=== PATIENT | male | born 1990 | race Caucasian/White ===

== ENCOUNTER 2019-02-17 19:05 | Inpatient (IN) | payer MEDICAID ==
[~2019-02-17] VITALS: Ht 175.3 cm; Wt 69.7 kg
[2019-02-17 20:06] VITALS: Ht 175.3 cm; Wt 69.7 kg
[2019-02-17] MEDS ORDERED: HALOPERIDOL 5 MG INJ IM STA (20:06)
[2019-02-17] MEDS ORDERED: LORAZEPAM 2 MG INJ IM STA (20:06)
--- NOTE | 2019-02-17 22:00 | ERD ---
ER Documentation Chief Complaint Chief Complaint hallucination, currently high on meth HPI 28-year-old male presents the emergency department hallucinating. Patient states that he uses heroin and methamphetamine which he used today. Provides no further insight into his presentation. ROS All systems reviewed and are negative except as per history of present illness. PMhx/Soc Medical and Surgical Hx: pt denies Surgical Hx History of Surgery: No Anesthesia Reaction: No Hx Neurological Disorder: Yes (epilepsy) Hx Respiratory Disorders: Yes (asthma) Hx Cardiac Disorders: No Hx Psychiatric Problems: No Hx Miscellaneous Medical Probl: Yes (gastritis ) Hx Alcohol Use: No Hx Substance Use: Yes (heroin, meth) Hx Tobacco Use: No Smoking Status: Current every day smoker FmHx Unknown at this time Physical Exam Vitals Vital Signs Date Temp Pulse Resp B/P (MAP) Pulse Ox O2 O2 Flow FiO2 Time Delivery Rate 02/17/19 98.3 115 12 121/62 98 20:06 (81) Physical Exam GENERAL: The patient is well developed and appropriate for usual state of health in no apparent distress HEENT: Pupils equal, round, and reactive to light. EOMI. There is no scleral icterus. NECK: C-spine is soft and supple, there is no meningismus. There is no cervical lymphadenopathy. LUNGS: Clear to auscultation bilaterally. There are no rales, wheezes or rhonchi. HEART: Regular rate and rhythm, no murmurs, clicks, rubs or gallops. ABDOMEN: Soft, non-tender, non-distended. There are bowel sounds in all four quadrants. No rebound or guarding. EXTREMITIES: There is no peripheral cyanosis or edema. No focal swelling or erythema. NEURO: The patient moves all four extremities with 5/5 strength. Cranial nerves II - XII are intact. Normal gait. Alert and oriented SKIN: There is stigmata of substance abuse HEME/LYMPHATIC: There is no evidence of excessive bruising or lymphedema. PSYCHIATRIC: Patient is awake but psychotic with no significant insight. He is slightly agitated but not violent. He has no insight or judgment. Result Diagram: 02/17/192127 Results 24 hrs Laboratory Tests Test 02/17/19 21:28 White Blood Count 8.1 10^3/ul Red Blood Count 4.41 10^6/ul Hemoglobin 13.2 g/dl Hematocrit 41.6 % Mean Corpuscular Volume 94.3 fl Mean Corpuscular Hemoglobin 29.9 pg Mean Corpuscular Hemoglobin Concent 31.7 g/dl Red Cell Distribution Width 16.2 % Platelet Count 221 10^3/UL Mean Platelet Volume 10.2 fl Immature Granulocytes % 0.200 % Neutrophils % 58.2 % Lymphocytes % 26.9 % Monocytes % 13.6 % Eosinophils % 0.9 % Basophils % 0.2 % Nucleated Red Blood Cells % 0.0 /100WBC Immature Granulocytes # 0.020 10^3/ul Neutrophils # 4.7 10^3/ul Lymphocytes # 2.2 10^3/ul Monocytes # 1.1 10^3/ul Eosinophils # 0.1 10^3/ul Basophils # 0.0 10^3/ul Nucleated Red Blood Cells # 0.0 10^3/ul Current Medications Medications Dose Sig/Gurvinder Start Time Status Last (Trade) Ordered Route PRN Stop Time Admin Dose Reason Admin Lorazepam 1 mg ONCE STAT 02/17/19 DC (Ativan) IM 20:06 02/17/19 20:08 Haloperidol 5 mg ONCE STAT 02/17/19 DC (Haldol) IM 20:06 02/17/19 20:08 Procedures/MDM Patient was taken to a room, seen and evaluated. Comfort measures were init iated. Diagnostic tests were ordered and reviewed. 3 LEAD RHYTHM STRIP: Normal sinus rhythm without ectopy RADIOLOGY: Reviewed with the radiologist REEVALUATION: 1999: Patient required sedation and responded nicely. He is now sedated. MEDICAL DECISION MAKIN-year-old male presents the emergency department with psychotic features related to the use of drugs of abuse. At this time patient will require observation until complete reevaluation can be performed when sober. Patient will require a psychiatric social and medical reevaluation at that time. Departure Diagnosis: Primary Impression: Psychosis Additional Impression: Drug abuse Condition: CINDY Olivares Feb 17, 2019 22:00
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
[2019-02-18] MEDS ORDERED: HYDROCODONE/APAP (10/325) TAB PO ONE (10:00)
[2019-02-18] MEDS ORDERED: LORAZEPAM 1 MG TAB PO ONE (17:00)
[2019-02-19] MEDS ORDERED: ONDANSETRON 4 MG INJ IV PRN ×3 (00:30→01:00)
[2019-02-19] MEDS ORDERED: DOCUSATE SODIUM 100 MG CAP PO PRN (00:30)
[2019-02-19] MEDS ORDERED: NACL 0.9% 3 ML SYG IV SCH (00:30)
[2019-02-19] MEDS ORDERED: ACETAMINOPHEN 325 MG TAB PO PRN ×2 (00:30)
[2019-02-19] MEDS ORDERED: BISACODYL (EC) 5 MG TAB PO PRN (00:30)
[2019-02-19] MEDS ORDERED: DIPHENHYDRAMINE 50 MG INJ IM PRN (01:00)
[2019-02-19] MEDS: LORAZEPAM 2 MG INJ IV PRN ×4 (03:41→23:57)
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
[2019-02-19] MEDS ORDERED: OLANZAPINE 5 MG TAB PO SCH (09:00)
--- NOTE | 2019-02-19 17:54 | PSY ---
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 At the time was very disorganized, paranoid, had AH. Came to hospital with severe paranoia, also elevated LFTs (that is why pt is on medical ponce). Had been using methamphetamine/heroin. Began zyprexa 5mg po bid. spoke with pt as MD was asked to see pt for re eval. Pt was organized, denies paranoia or AH. Denies si. Admits to using methamphetamine and heroin. Does not want to be in psych hospital though this was offered and recommended. Past Psych Hx: denies ho psych admits or suicide attempts PMHx; hep C, seizure do Meds: zyprexa 5mg po bid nkda MSE: casually groomed, cooperative, organized, slightly restricted affect, denies delusions or avh or si/hi, impaired insight/impulse control Imp: 28 yo male when he presented he was gravely disabled but at this point does not appear to be gravely disabled as he has responded to treatment. And pt declines voluntary admission. Therefore, the lowest level of care for pt would be outpatient continue zyprexa 5mg po bid recommend parallel hx from family/friend to confirm that he was not/is not indicating si; if this is the case, can d/c 1:1 and pt can be referred to outpatient psychiatry if pt's liver is tolerating zyprexa (recommend repeat of LFTs to ensure he is able to tolerate zyprexa ) Hospitalization: yes Medical history Problems Medical Problems: (1) Drug abuse Status: Acute (2) Psychosis Status: Acute Allergies: Coded Allergies: Unknown: Unable to obtain (Unverified , 02/17/19) Social History Marital status: other Psychiatric Objective Eval Mental Status Examination: Laboratory Results Laboratory Tests Test 02/17/19 21:28 02/18/19 09:36 02/18/19 20:40 02/19/19 04:40 White Blood 8.1 10^3/ul 4.8 10^3/ul Count Red Blood Count 4.41 10^6/ul 3.93 10^6/ul Hemoglobin 13.2 g/dl 11.8 g/dl Hematocrit 41.6 % 37.4 % Mean Corpuscular 94.3 fl 95.2 fl Volume Mean Corpuscular 29.9 pg 30.0 pg Hemoglobin Mean Corpuscular 31.7 g/dl 31.6 g/dl Hemoglobin [place] nt Red Cell 16.2 % 16.1 % Distribution Width Platelet Count 221 10^3/UL 226 10^3/UL Mean Platelet 10.2 fl 10.3 fl Volume Immature 0.200 % 0.400 % Granulocytes % Neutrophils % 58.2 % 42.9 % Lymphocytes % 26.9 % 34.6 % Monocytes % 13.6 % 18.4 % Eosinophils % 0.9 % 3.3 % Basophils % 0.2 % 0.4 % Nucleated Red 0.0 /100WBC 0.0 /100WBC Blood Cells % Immature 0.020 10^3/ul 0.020 10^3/ul Granulocytes # Neutrophils # 4.7 10^3/ul 2.1 10^3/ul Lymphocytes # 2.2 10^3/ul 1.7 10^3/ul Monocytes # 1.1 10^3/ul 0.9 10^3/ul Eosinophils # 0.1 10^3/ul 0.2 10^3/ul Basophils # 0.0 10^3/ul 0.0 10^3/ul Nucleated Red 0.0 10^3/ul 0.0 10^3/ul Blood Cells # Sodium Level 140 mmol/L 143 mmol/L Potassium Level 3.6 mmol/L 4.4 mmol/L Chloride Level 104 mmol/L 107 mmol/L Carbon Dioxide 22 mmol/L 25 mmol/L Level Anion Gap 14 11 Blood Urea 11 mg/dl 13 mg/dl Nitrogen Creatinine 0.66 mg/dl 0.67 mg/dl Est Glomerular > 60 mL/min > 60 mL/min Filtrat Rate mL/min Glucose Level 69 mg/dl 126 mg/dl Calcium Level 9.3 mg/dl 8.7 mg/dl Total Bilirubin 0.9 mg/dl 0.8 mg/dl 0.5 mg/dl Direct Bilirubin 0.00 mg/dl 0.00 mg/dl 0.00 mg/dl Indirect 0.9 mg/dl 0.8 mg/dl 0.5 mg/dl Bilirubin Aspartate Amino 581 IU/L 524 IU/L 500 IU/L Transf (AST/SGOT ) Alanine 1070 IU/L 855 IU/L 857 IU/L Aminotransferase (ALT/SGPT) Alkaline 142 IU/L 101 IU/L 100 IU/L Phosphatase Total Protein 8.7 g/dl 7.7 g/dl 7.6 g/dl Albumin 3.8 g/dl 3.2 g/dl 3.2 g/dl Globulin 4.90 g/dl 4.40 g/dl Albumin/Globulin 0.77 0.72 Ratio Salicylates < 1.0 mg/dl Level Acetaminophen < 10.0 ug/ml Level Ethyl Alcohol < 10.0 mg/dl Level Urine Color VIPUL Urine Clarity CLEAR Urine pH 5.0 Urine Specific 1.025 [place] Urine Ketones 1+ mg/dL Urine Nitrite NEGATIVE mg/dL Urine Bilirubin NEGATIVE mg/dL Urine 2+ mg/dL Urobilinogen Urine Leukocyte NEGATIVE Elena/ul Esterase Urine 14 /HPF Microscopic RBC Urine 2 /HPF Microscopic WBC Urine Bacteria FEW /HPF Urine Mucus FEW /HPF Urine Hemoglobin 2+ mg/dL Urine Glucose NEGATIVE mg/dL Urine Total 1+ mg/dl Protein Urine Opiates Negative Screen Urine Negative Barbiturates Urine POSITIVE Amphetamines Screen Urine Positive Benzodiazepines Screen Urine Cocaine Negative Screen Urine Negative Cannabinoids Test 02/19/19 04:44 Lipase 65 U/L Hepatitis B NEGATIVE Surface Antigen Hepatitis B NEGATIVE Surface Antibody Hepatitis B Core NEGATIVE Total Antibody Hepatitis C REACTIVE Antibody Assessment and Plan Recommendation/Plan Multiple antipsychotics: No Discharge Disposition: Community Legal Status: Release involuntary hold MER MALDONADO Feb 19, 2019 17:54
--- NOTE | 2019-02-19 20:01 | PN ---
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 Psychiatric mangement per psychiatry Transamintis: - Known HCV disease but this elevation is higher than expected - RUQ US ok - Trend LFTs for now Methamphetine use d/o: - Cessation encouraged SW/CM consults Result Diagram: 02/19/19 0440 02/19/190 Results 24hrs Laboratory Tests Test 02/18/19 20:40 02/19/19 04:40 02/19/19 04:44 Total Bilirubin 0.8 0.5 Direct Bilirubin 0.00 0.00 Indirect Bilirubin 0.8 0.5 Aspartate Amino Transf (AST/SGOT) 524 H 500 H Alanine Aminotransferase (ALT/SGPT) 855 H 857 H Alkaline Phosphatase 101 100 Total Protein 7.7 # 7.6 Albumin 3.2 L 3.2 L White Blood Count 4.8 # Red Blood Count 3.93 L Hemoglobin 11.8 L Hematocrit 37.4 L Mean Corpuscular Volume 95.2 Mean Corpuscular Hemoglobin 30.0 Mean Corpuscular Hemoglobin Concent 31.6 L Red Cell Distribution Width 16.1 H Platelet Count 226 Mean Platelet Volume 10.3 Immature Granulocytes % 0.400 Neutrophils % 42.9 Lymphocytes % 34.6 Monocytes % 18.4 H Eosinophils % 3.3 Basophils % 0.4 Nucleated Red Blood Cells % 0.0 Immature Granulocytes # 0.020 Neutrophils # 2.1 Lymphocytes # 1.7 Monocytes # 0.9 Eosinophils # 0.2 Basophils # 0.0 Nucleated Red Blood Cells # 0.0 Sodium Level 143 Potassium Level 4.4 Chloride Level 107 Carbon Dioxide Level 25 Anion Gap 11 Blood Urea Nitrogen 13 Creatinine 0.67 Est Glomerular Filtrat Rate mL/min > 60 Glucose Level 126 # Calcium Level 8.7 Globulin 4.40 H Albumin/Globulin Ratio 0.72 Lipase 65 Hepatitis B Surface Antigen NEGATIVE Hepatitis B Surface Antibody NEGATIVE Hepatitis B Core Total Antibody NEGATIVE Hepatitis C Antibody REACTIVE H Subjective 24 Hr Interval Summary Free Text/Dictation Patient encephelopahty has resolved Feels well, only complaint is of pain on L hip He denies suicidal ideation Exam/Review of Systems Exam Vitals Vital Signs Date Temp Pulse Resp B/P (MAP) Pulse Ox O2 O2 Flow FiO2 Time Delivery Rate 02/19/19 77 18 109/69 97 Room Air 15:38 (82) 02/18/19 98.0 19:22 Constitutional: alert, oriented, well developed Psych: no complaints, nl mood/affect Head: normocephalic, atraumatic Eyes: nl conjunctiva, EOMI, nl lids, nl sclera, PERRL ENMT: nl external ears & nose, nl lips & teeth, nl nasal mucosa & septum Neck: supple, non-tender Respiratory: clear to auscultation, normal air movement Cardiovascular: regular rate and rhythm, nl pulses Gastrointestinal: soft, nl liver, spleen, non-tender Musculoskeletal: nl extremities to inspection, nl gait and stance Extremities: normal pulses Neurological: [employer] 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[employer]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 intact, nl mental status, nl speech, nl strength Skin: nl turgor; No rash or lesions Lymph: nl lymph nodes Results Results 24hrs Laboratory Tests Test 02/18/19 20:40 02/19/19 04:40 02/19/19 04:44 Total Bilirubin 0.8 0.5 Direct Bilirubin 0.00 0.00 Indirect Bilirubin 0.8 0.5 Aspartate Amino Transf (AST/SGOT) 524 H 500 H Alanine Aminotransferase (ALT/SGPT) 855 H 857 H Alkaline Phosphatase 101 100 Total Protein 7.7 # 7.6 Albumin 3.2 L 3.2 L White Blood Count 4.8 # Red Blood Count 3.93 L Hemoglobin 11.8 L Hematocrit 37.4 L Mean Corpuscular Volume 95.2 Mean Corpuscular Hemoglobin 30.0 Mean Corpuscular Hemoglobin Concent 31.6 L Red Cell Distribution Width 16.1 H Platelet Count 226 Mean Platelet Volume 10.3 Immature Granulocytes % 0.400 Neutrophils % 42.9 Lymphocytes % 34.6 Monocytes % 18.4 H Eosinophils % 3.3 Basophils % 0.4 Nucleated Red Blood Cells % 0.0 Immature Granulocytes # 0.020 Neutrophils # 2.1 Lymphocytes # 1.7 Monocytes # 0.9 Eosinophils # 0.2 Basophils # 0.0 Nucleated Red Blood Cells # 0.0 Sodium Level 143 Potassium Level 4.4 Chloride Level 107 Carbon Dioxide Level 25 Anion Gap 11 Blood Urea Nitrogen 13 Creatinine 0.67 Est Glomerular Filtrat Rate mL/min > 60 Glucose Level 126 # Calcium Level 8.7 Globulin 4.40 H Albumin/Globulin Ratio 0.72 Lipase 65 Hepatitis B Surface Antigen NEGATIVE Hepatitis B Surface Antibody NEGATIVE Hepatitis B Core Total Antibody NEGATIVE Hepatitis C Antibody REACTIVE H Medications Medication Current Medications IV Flush (NS 3 ml) 3 ml PER PROTOCOL IV ; Start 02/19/19 at 00:30 Ondansetron HCl (Zofran Inj) 4 mg Q6H PRN IV NAUSEA/VOMITING; Start 02/19/19 at 00:30 Acetaminophen (Tylenol Tab) 650 mg Q6H PRN PO .PAIN 1-3 OR TEMP; Start 02/19/19 at 00:30 Docusate Sodium (Colace) 100 mg Q12H PRN PO .CONSTIPATION; Start 02/19/19 at 00:30 Bisacodyl (Dulcolax) 5 mg DAILY PRN PO .CONSTIPATION; Start 02/19/19 at 00:30 Lorazepam (Ativan) 1 mg Q4H PRN IV AGITATION Last administered on 02/19/19at 19: 22; Admin Dose 1 MG; Start 02/19/19 at 00:30 Olanzapine (Zyprexa) 5 mg BID PO Last administered on 02/19/19at 08:49; Admin Dose 5 MG; Start 02/19/19 at 09:00 Ondansetron HCl (Zofran Inj) 4 mg Q4H PRN IV NAUSEA AND/OR VOMITING; Start 02/19/19 at 01:00 Haloperidol (Haldol) 5 mg Q4H PRN IM severe agitation; Start 02/19/19 at 01:00 Diphenhydramine HCl (Benadryl) 50 mg Q6H PRN IM SEVERE AGITATION; Start 02/19/19 at 01:00 Lorazepam (Ativan) 2 mg Q6H PRN IM severe agitation; Start 02/19/19 at 01:00 Influenza Virus Vaccine Quadrival (Fluzone) 0.5 ml ONCE ONCE IM* ; Start 02/20/19 at 09:00; Stop 02/20/19 at 09:01 REINALDO CORDERO MD Feb 19, 2019 20:01
[2019-02-19 20:04] VITALS: BP 110/70; PULSE 72; RESP 18
[2019-02-20 08:00] VITALS: BP 100/61; PULSE 83; RESP 18
[2019-02-20] MEDS: LORAZEPAM 2 MG INJ IV PRN ×3 (08:24→21:14)
[2019-02-20] MEDS ORDERED: INFLUENZA VIRUS VACCINE 0.5 ML (DISPENSING) IM* ONE (09:00)
--- NOTE | 2019-02-20 10:52 | CONS ---
Date/Time of Note Date/Time of Note DATE: 02/20/19 TIME: 10:50 Consult Date/Type/Reason Admit Date Feb 19, 2019 at 00:10 Type of Consult Psych Subjective Patient was interviewed today, he denies suicidal ideation denies homicidal ideation, denies auditory hallucination, states his hallucination was drug- induced from meth, and since he has been off meth for a few days he does not have hallucination, and he contracted for safety. However continues to endorse increased anxiety and difficulty focusing. Objective Patient Appearance: Disheveled Voice Loudness: Moderately Soft/Quiet Mood and Affect Description: Anxious Mood or Affect: Cooperative, Anxious Speech Pattern: Clear Thought Process: Intact Hallucination Type: None Delusion Description: Not Present Assessment/Plan Recommendations Continue Ativan as ordered JALYN HARDING NP Feb 20, 2019 10:52
--- NOTE | 2019-02-20 11:33 | PN ---
Date/Time of Note Date/Time of Note DATE: 02/20/19 TIME: 11:31 Assessment/Plan VTE Prophylaxis SCD applied (from Nsg): Yes Pharmacological prophylaxis: heparin Lines/Catheters IV Catheter Type (from Nrsg): Saline Lock Assessment/Plan Hospital Course 28 yo male with HCV presents wtih methamphetamine induced psychosis and transami nitis Psychiatric mangement per psychiatry TMJ inflammation: - Toradol PRN Transamintis: - Known HCV disease but this elevation is higher than expected - RUQ US ok - Trend LFTs - Autoimmune labs pending, MRCP pending Methamphetine use d/o: - Cessation encouraged SW/CM consults Result Diagram: 02/20/19 0815 02/20/19 0815 Results 24hrs Laboratory Tests Test 02/20/19 08:15 White Blood Count 5.1 Red Blood Count 4.27 L Hemoglobin 12.6 L Hematocrit 40.4 L Mean Corpuscular Volume 94.6 Mean Corpuscular Hemoglobin 29.5 Mean Corpuscular Hemoglobin Concent 31.2 L Red Cell Distribution Width 15.5 H Platelet Count 264 Mean Platelet Volume 10.1 Immature Granulocytes % 0.200 Neutrophils % 44.9 Lymphocytes % 41.6 Monocytes % 10.0 Eosinophils % 2.7 Basophils % 0.6 Nucleated Red Blood Cells % 0.0 Immature Granulocytes # 0.010 Neutrophils # 2.3 Lymphocytes # 2.1 Monocytes # 0.5 Eosinophils # 0.1 Basophils # 0.0 Nucleated Red Blood Cells # 0.0 Sodium Level 142 Potassium Level 4.3 Chloride Level 106 Carbon Dioxide Level 27 Anion Gap 9 Blood Urea Nitrogen 14 Creatinine 0.63 Est Glomerular Filtrat Rate mL/min > 60 Glucose Level 97 Calcium Level 8.9 Total Bilirubin 0.5 Direct Bilirubin 0.00 Indirect Bilirubin 0.5 Aspartate Amino Transf (AST/SGOT) 423 H Alanine Aminotransferase (ALT/SGPT) 821 H Alkaline Phosphatase 93 Creatine Kinase 105 Total Protein 8.0 Albumin 3.4 Globulin 4.60 H Albumin/Globulin Ratio 0.73 Subjective 24 Hr Interval Summary Free Text/Dictation Complains of pain in L TMJ joint Anxious about living situation Denies and depression or SI Exam/Review of Systems Exam Vitals Vital Signs Date Temp Pulse Resp B/P (MAP) Pulse Ox O2 O2 Flow FiO2 Time Delivery Rate 02/20/19 98.0 83 18 100/61 97 Room Air 08:00 (74) Intake and Output 3/22/19 3/22/19 3/23/19 1515:00 23:00 07:00 IntakeIntake Total 240 ml 840 ml BalanceBalance 240 ml 840 ml Constitutional: alert, oriented, well developed Psych: no complaints, nl mood/affect Head: normocephalic, atraumatic Eyes: nl conjunctiva, EOMI, nl lids, nl sclera, PERRL ENMT: nl external ears & nose, nl lips & teeth, nl nasal mucosa & septum Neck: supple, non-tender Respiratory: clear to auscultation, normal air movement Cardiovascular: regular rate and rhythm, nl pulses Gastrointestinal: soft, nl liver, spleen, non-tender Musculoskeletal: nl extremities to inspection, nl gait and stance Extremities: normal pulses Neurological: 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, nl mental status, nl speech, nl strength Skin: nl turgor; No rash or lesions Lymph: nl lymph nodes Results Results 24hrs Laboratory Tests Test 02/20/19 08:15 White Blood Count 5.1 Red Blood Count 4.27 L Hemoglobin 12.6 L Hematocrit 40.4 L Mean Corpuscular Volume 94.6 Mean Corpuscular Hemoglobin 29.5 Mean Corpuscular Hemoglobin Concent 31.2 L Red Cell Distribution Width 15.5 H Platelet Count 264 Mean Platelet Volume 10.1 Immature Granulocytes % 0.200 Neutrophils % 44.9 Lymphocytes % 41.6 Monocytes % 10.0 Eosinophils % 2.7 Basophils % 0.6 Nucleated Red Blood Cells % 0.0 Immature Granulocytes # 0.010 Neutrophils # 2.3 Lymphocytes # 2.1 Monocytes # 0.5 Eosinophils # 0.1 Basophils # 0.0 Nucleated Red Blood Cells # 0.0 Sodium Level 142 Potassium Level 4.3 Chloride Level 106 Carbon Dioxide Level 27 Anion Gap 9 Blood Urea Nitrogen 14 Creatinine 0.63 Est Glomerular Filtrat Rate mL/min > 60 Glucose Level 97 Calcium Level 8.9 Total Bilirubin 0.5 Direct Bilirubin 0.00 Indirect Bilirubin 0.5 Aspartate Amino Transf (AST/SGOT) 423 H Alanine Aminotransferase (ALT/SGPT) 821 H Alkaline Phosphatase 93 Creatine Kinase 105 Total Protein 8.0 Albumin 3.4 Globulin 4.60 H Albumin/Globulin Ratio 0.73 Medications Medication Current Medications IV Flush (NS 3 ml) 3 ml PER PROTOCOL IV ; Start 02/19/19 at 00:30 Ondansetron HCl (Zofran Inj) 4 mg Q6H PRN IV NAUSEA/VOMITING; Start 02/19/19 at 00:30 Acetaminophen (Tylenol Tab) 650 mg Q6H PRN PO .PAIN 1-3 OR TEMP; Start 02/19/19 at 00:30 Docusate Sodium (Colace) 100 mg Q12H PRN PO .CONSTIPATION; Start 02/19/19 at 00:30 Bisacodyl (Dulcolax) 5 mg DAILY PRN PO .CONSTIPATION; Start 02/19/19 at 00:30 Lorazepam (Ativan) 1 mg Q4H PRN IV AGITATION Last administered on 02/20/19at 08:24; Admin Dose 1 MG; Start 02/19/19 at 00:30 Ondansetron HCl (Zofran Inj) 4 mg Q4H PRN IV NAUSEA AND/OR VOMITING; Start 02/19/19 at 01:00 Haloperidol (Haldol) 5 mg Q4H PRN IM severe agitation; Start 02/19/19 at 01:00 Diphenhydramine HCl (Benadryl) 50 mg Q6H PRN IM SEVERE AGITATION Last administered on 02/19/19at 22:14; Admin Dose 50 MG; Start 02/19/19 at 01:00 Lorazepam (Ativan) 2 mg Q6H PRN IM severe agitation; Start 02/19/19 at 01:00 Ketorolac Tromethamine (Toradol) 15 mg Q6H PRN IV PAIN; Start 02/20/19 at 11:30; Stop 02/23/19 at 11:29; Status UNV Carbamide Peroxide (Debrox Otic) 3 drop BID BOTH EARS ; Start 02/20/19 at 11:30; Status UNV REINALDO CORDERO MD Feb 20, 2019 11:32
[2019-02-20] MEDS: KETOROLAC 15 MG INJ IV PRN ×2 (12:25→20:11)
[2019-02-20] MEDS: CARBAMIDE PEROXIDE 6.5% 15ML OTIC BOTH EARS SCH ×2 (13:10→20:10)
[2019-02-20 14:08] VITALS: BP 96/51; PULSE 76; RESP 17
[2019-02-20] MEDS ORDERED: LORAZEPAM 2 MG INJ IV SCH (16:00)
[2019-02-20 19:27] VITALS: BP 119/77; PULSE 90; RESP 20
[2019-02-21 01:33] VITALS: BP 95/59; PULSE 77; RESP 18
[2019-02-21] MEDS: LORAZEPAM 2 MG INJ IV PRN ×5 (03:20→23:40)
[2019-02-21] MEDS: CARBAMIDE PEROXIDE 6.5% 15ML OTIC BOTH EARS SCH ×2 (08:01→20:25)
[2019-02-21] MEDS: KETOROLAC 15 MG INJ IV PRN (08:01)
[2019-02-21 09:24] VITALS: BP 115/66; RESP 18
[2019-02-21] MEDS: HALOPERIDOL 5 MG INJ IM PRN ×2 (10:25→15:32)
--- NOTE | 2019-02-21 14:19 | PN ---
Date/Time of Note Date/Time of Note DATE: 02/21/19 TIME: 14:17 Assessment/Plan VTE Prophylaxis Risk score (from Nsg)>0 risk: 0 SCD applied (from Nsg): Yes Pharmacological prophylaxis: heparin Lines/Catheters IV Catheter Type (from Nrs): Saline Lock Assessment/Plan Hospital Course 28 yo male with HCV presents wtih methamphetamine induced psychosis and transaminitis Psychiatric management per psychiatry TMJ inflammation: - Toradol PRN Transamintis: - Known HCV disease but elevation is a bit higher than expected. Clearly there is an acute component to this because LFTs trending down each day. I s uspect there was a drug induced liver injury on top of chronic hepatitis - MRI liver wnl - RUQ US ok - Trend LFTs - Autoimmune labs pending Methamphetine use d/o: - Cessation encouraged SW/CM consults Discharge planning: After the liver situation is clarified, the patient's discharge is entirely per psychiatry, either to a psych facility or cleared for home dc Result Diagram: 02/21/19 0829 02/21/19 0829 Results 24hrs Laboratory Tests Test 02/21/19 08:29 02/21/19 09:48 White Blood Count 4.9 Red Blood Count 4.13 L Hemoglobin 12.4 L Hematocrit 39.1 L Mean Corpuscular Volume 94.7 Mean Corpuscular Hemoglobin 30.0 Mean Corpuscular Hemoglobin Concent 31.7 L Red Cell Distribution Width 15.0 H Platelet Count 257 Mean Platelet Volume 10.2 Immature Granulocytes % 0.400 Neutrophils % 41.9 Lymphocytes % 46.0 Monocytes % 8.9 Eosinophils % 2.2 Basophils % 0.6 Nucleated Red Blood Cells % 0.0 Immature Granulocytes # 0.020 Neutrophils # 2.1 Lymphocytes # 2.3 Monocytes # 0.4 Eosinophils # 0.1 Basophils # 0.0 Nucleated Red Blood Cells # 0.0 Sodium Level 140 Potassium Level 3.9 Chloride Level 106 Carbon Dioxide Level 25 Anion Gap 9 Blood Urea Nitrogen 14 Creatinine 0.59 L Est Glomerular Filtrat Rate mL/min > 60 Glucose Level 162 Calcium Level 8.5 Total Bilirubin 0.3 Direct Bilirubin 0.00 Indirect Bilirubin 0.3 Aspartate Amino Transf (AST/SGOT) 309 H Alanine Aminotransferase (ALT/SGPT) 677 H Alkaline Phosphatase 88 Total Protein 7.8 Albumin 3.3 Globulin 4.50 H Albumin/Globulin Ratio 0.73 Lab Scanned Report REFERENCE LAB Subjective 24 Hr Interval Summary Free Text/Dictation MRI liver wnl Feels well Says he is planning to go back and live with his mom Exam/Review of Systems Exam Vitals Vital Signs Date Temp Pulse Resp B/P (MAP) Pulse Ox O2 O2 Flow FiO2 Time Delivery Rate 02/21/19 98.1 18 115/66 98 Room Air 09:24 (82) 02/21/19 77 01:33 Intake and Output 02/20/19 02/20/19 02/21/19 1515:00 23:00 07:00 IntakeIntake Total 920 ml 480 ml BalanceBalance 920 ml 480 ml Constitutional: alert, oriented, well developed Psych: no complaints, nl mood/affect Head: normocephalic, atraumatic Eyes: nl conjunctiva, EOMI, nl lids, nl sclera, PERRL ENMT: nl external ears & nose, nl lips & teeth, nl nasal mucosa & septum Neck: supple, non-tender Respiratory: clear to auscultation, normal air movement Cardiovascular: regular rate and rhythm, nl pulses Gastrointestinal: soft, nl liver, spleen, non-tender Musculoskeletal: nl extremities to inspection, nl gait and stance Extremities: normal pulses 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, nl mental status, nl speech, nl strength Skin: nl turgor; No rash or lesions Lymph: nl lymph nodes Results Results 24hrs Laboratory Tests Test 02/21/19 08:29 02/21/19 09:48 White Blood Count 4.9 Red Blood Count 4.13 L Hemoglobin 12.4 L Hematocrit 39.1 L Mean Corpuscular Volume 94.7 Mean Corpuscular Hemoglobin 30.0 Mean Corpuscular Hemoglobin Concent 31.7 L Red Cell Distribution Width 15.0 H Platelet Count 257 Mean Platelet Volume 10.2 Immature Granulocytes % 0.400 Neutrophils % 41.9 Lymphocytes % 46.0 Monocytes % 8.9 Eosinophils % 2.2 Basophils % 0.6 Nucleated Red Blood Cells % 0.0 Immature Granulocytes # 0.020 Neutrophils # 2.1 Lymphocytes # 2.3 Monocytes # 0.4 Eosinophils # 0.1 Basophils # 0.0 Nucleated Red Blood Cells # 0.0 Sodium Level 140 Potassium Level 3.9 Chloride Level 106 Carbon Dioxide Level 25 Anion Gap 9 Blood Urea Nitrogen 14 Creatinine 0.59 L Est Glomerular Filtrat Rate mL/min > 60 Glucose Level 162 Calcium Level 8.5 Total Bilirubin 0.3 Direct Bilirubin 0.00 Indirect Bilirubin 0.3 Aspartate Amino Transf (AST/SGOT) 309 H Alanine Aminotransferase (ALT/SGPT) 677 H Alkaline Phosphatase 88 Total Protein 7.8 Albumin 3.3 Globulin 4.50 H Albumin/Globulin Ratio 0.73 Lab Scanned Report REFERENCE LAB Medications Medication Current Medications IV Flush (NS 3 ml) 3 ml PER PROTOCOL IV ; Start 02/19/19 at 00:30 Ondansetron HCl (Zofran Inj) 4 mg Q6H PRN IV NAUSEA/VOMITING; Start 02/19/19 at 00:30 Acetaminophen (Tylenol Tab) 650 mg Q6H PRN PO .PAIN 1-3 OR TEMP; Start 02/19/19 at 00:30 Docusate Sodium (Colace) 100 mg Q12H PRN PO .CONSTIPATION; Start 02/19/19 at 00:30 Bisacodyl (Dulcolax) 5 mg DAILY PRN PO .CONSTIPATION; Start 02/19/19 at 00:30 Lorazepam (Ativan) 1 mg Q4H PRN IV AGITATION Last administered on 02/21/19at 13:33; Admin Dose 1 MG; Start 02/19/19 at 00:30 Ondansetron HCl (Zofran Inj) 4 mg Q4H PRN IV NAUSEA AND/OR VOMITING; Start 02/19/19 at 01:00 Haloperidol (Haldol) 5 mg Q4H PRN IM severe agitation Last administered on 02/21/19at 10:25; Admin Dose 5 MG; Start 02/19/19 at 01:00 Diphenhydramine HCl (Benadryl) 50 mg Q6H PRN IM SEVERE AGITATION Last administered on 02/19/19at 22:14; Admin Dose 50 MG; Start 02/19/19 at 01:00 Lorazepam (Ativan) 2 mg Q6H PRN IM severe agitation; Start 02/19/19 at 01:00 Ketorolac Tromethamine (Toradol) 15 mg Q6H PRN IV PAIN Last administered on 02/21/19at 08:01; Admin Dose 15 MG; Start 02/20/19 at 11:30; Stop 02/23/19 at 11:29 Carbamide Peroxide (Debrox Otic) 3 drop BID BOTH EARS Last administered on 02/21/19at 08:01; Admin Dose 3 DROP; Start 02/20/19 at 12:00 Lorazepam (Ativan) 2 mg ONCE IV Last administered on 02/20/19at 16:06; Admin Dose 2 MG; Start 02/20/19 at 16:00; Stop 02/21/19 at 15:59 REINALDO CORDERO MD Feb 21, 2019 14:19
[2019-02-21 15:32] VITALS: BP 103/56; PULSE 73; RESP 18
[2019-02-21 20:13] VITALS: BP 108/62; PULSE 73; RESP 18
[2019-02-22 02:37] VITALS: BP 106/65; PULSE 59; RESP 18
[2019-02-22 07:23] VITALS: BP 110/66; PULSE 72; RESP 18
[2019-02-22] MEDS: CARBAMIDE PEROXIDE 6.5% 15ML OTIC BOTH EARS SCH ×2 (08:41→21:00)
[2019-02-22] MEDS: LORAZEPAM 2 MG INJ IM PRN ×2 (08:57→16:22)
[2019-02-22] MEDS: HALOPERIDOL 5 MG INJ IM PRN ×2 (10:55→18:33)
[2019-02-22 14:00] VITALS: BP 120/62; PULSE 102; RESP 18
--- NOTE | 2019-02-22 14:19 | PN ---
Date/Time of Note Date/Time of Note DATE: 02/22/19 TIME: 14:15 Assessment/Plan VTE Prophylaxis Risk score (from Nsg)>0 risk: 0 Pharmacological prophylaxis: NA/contraindicated Pharm contraindication: low risk/ambulating Lines/Catheters IV Catheter Type (from Nrsg): Saline Lock Assessment/Plan Hospital Course 28 yo male with HCV presents with methamphetamine induced psychosis and transaminitis Psychosis has improved Psychiatry consultation appreciated, sitter has been discontinued TMJ inflammation: - Toradol PRN Transaminitis - Known HCV disease but elevation is higher than expected. Clearly there is an acute component to this because LFTs trending down each day. 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 Discharge planning: Patient is attempting to stay with mother, likely DC home tomorrow Result Diagram: 02/22/19 0847 02/22/19 0847 Results 24hrs Laboratory Tests Test 02/22/19 08:47 White Blood Count 5.7 Red Blood Count 4.33 L Hemoglobin 12.9 L Hematocrit 40.5 L Mean Corpuscular Volume 93.5 Mean Corpuscular Hemoglobin 29.8 Mean Corpuscular Hemoglobin Concent 31.9 L Red Cell Distribution Width 14.8 H Platelet Count 302 Mean Platelet Volume 10.5 H Immature Granulocytes % 0.400 Neutrophils % 40.5 Lymphocytes % 48.2 Monocytes % 7.4 Eosinophils % 2.8 Basophils % 0.7 Nucleated Red Blood Cells % 0.0 Immature Granulocytes # 0.020 Neutrophils # 2.3 Lymphocytes # 2.7 Monocytes # 0.4 Eosinophils # 0.2 Basophils # 0.0 Nucleated Red Blood Cells # 0.0 Sodium Level 140 Potassium Level 4.1 Chloride Level 106 Carbon Dioxide Level 27 Anion Gap 7 Blood Urea Nitrogen 9 Creatinine 0.64 Est Glomerular Filtrat Rate mL/min > 60 Glucose Level 148 Calcium Level 8.8 Total Bilirubin 0.3 Direct Bilirubin 0.00 Indirect Bilirubin 0.3 Aspartate Amino Transf (AST/SGOT) 243 H Alanine Aminotransferase (ALT/SGPT) 625 H Alkaline Phosphatase 89 Total Protein 8.3 H Albumin 3.5 Globulin 4.80 H Albumin/Globulin Ratio 0.72 Subjective 24 Hr Interval Summary Constitutional: no complaints Exam/Review of Systems Exam Vitals Vital Signs Date Temp Pulse Resp B/P (MAP) Pulse Ox O2 O2 Flow FiO2 Time Delivery Rate 02/22/19 97.9 72 18 110/66 97 07:23 (81) 02/21/19 Room Air 15:32 Intake and Output 02/21/19 02/21/19 02/22/19 1515:00 23:00 07:00 IntakeIntake Total 200 ml 500 ml OutputOutput Total 375 ml 1100 ml BalanceBalance -175 ml -600 ml Constitutional: alert, oriented Respiratory: clear to auscultation Cardiovascular: regular rate and rhythm Gastrointestinal: soft; No distended Musculoskeletal: nl extremities to inspection Results Results 24hrs Laboratory Tests Test 02/22/19 08:47 White Blood Count 5.7 Red Blood Count 4.33 L Hemoglobin 12.9 L Hematocrit 40.5 L Mean Corpuscular Volume 93.5 Mean Corpuscular Hemoglobin 29.8 Mean Corpuscular Hemoglobin Concent 31.9 L Red Cell Distribution Width 14.8 H Platelet Count 302 Mean Platelet Volume 10.5 H Immature Granulocytes % 0.400 Neutrophils % 40.5 Lymphocytes % 48.2 Monocytes % 7.4 Eosinophils % 2.8 Basophils % 0.7 Nucleated Red Blood Cells % 0.0 Immature Granulocytes # 0.020 Neutrophils # 2.3 Lymphocytes # 2.7 Monocytes # 0.4 Eosinophils # 0.2 Basophils # 0.0 Nucleated Red Blood Cells # 0.0 Sodium Level 140 Potassium Level 4.1 Chloride Level 106 Carbon Dioxide Level 27 Anion Gap 7 Blood Urea Nitrogen 9 Creatinine 0.64 Est Glomerular Filtrat Rate mL/min > 60 Glucose Level 148 Calcium Level 8.8 Total Bilirubin 0.3 Direct Bilirubin 0.00 Indirect Bilirubin 0.3 Aspartate Amino Transf (AST/SGOT) 243 H Alanine Aminotransferase (ALT/SGPT) 625 H Alkaline Phosphatase 89 Total Protein 8.3 H Albumin 3.5 Globulin 4.80 H Albumin/Globulin Ratio 0.72 Medications Medication Current Medications IV Flush (NS 3 ml) 3 ml PER PROTOCOL IV ; Start 02/19/19 at 00:30 Ondansetron HCl (Zofran Inj) 4 mg Q6H PRN IV NAUSEA/VOMITING; Start 02/19/19 at 00:30 Acetaminophen (Tylenol Tab) 650 mg Q6H PRN PO .PAIN 1-3 OR TEMP; Start 02/19/19 at 00:30 Docusate Sodium (Colace) 100 mg Q12H PRN PO .CONSTIPATION; Start 02/19/19 at 00:30 Bisacodyl (Dulcolax) 5 mg DAILY PRN PO .CONSTIPATION; Start 02/19/19 at 00:30 Ondansetron HCl (Zofran Inj) 4 mg Q4H PRN IV NAUSEA AND/OR VOMITING; Start 02/19/19 at 01:00 Haloperidol (Haldol) 5 mg Q4H PRN IM severe agitation Last administered on 02/22/19at 10:55; Admin Dose 5 MG; Start 02/19/19 at 01:00 Diphenhydramine HCl (Benadryl) 50 mg Q6H PRN IM SEVERE AGITATION Last administered on 02/19/19at 22:14; Admin Dose 50 MG; Start 02/19/19 at 01:00 Lorazepam (Ativan) 2 mg Q6H PRN IM severe agitation Last administered on 02/22/19at 08:57; Admin Dose 2 MG; Start 02/19/19 at 01:00 Ketorolac Tromethamine (Toradol) 15 mg Q6H PRN IV PAIN Last administered on 02/21/19at 08:01; Admin Dose 15 MG; Start 02/20/19 at 11:30; Stop 02/23/19 at 11:29 Carbamide Peroxide (Debrox Otic) 3 drop BID BOTH EARS Last administered on 02/22/19at 08:41; Admin Dose 3 DROP; Start 02/20/19 at 12:00 Lorazepam (Ativan) 1 mg Q6H PRN PO ANXIETY; Start 02/22/19 at 14:30; Status LEANNA SAUNDERS Feb 22, 2019 14:19
[2019-02-22] MEDS ORDERED: LORAZEPAM 1 MG TAB PO PRN (14:30)
[2019-02-22 20:02] VITALS: BP 112/57; PULSE 106; RESP 18
[2019-02-23 02:20] VITALS: BP 120/82; PULSE 76; RESP 18
[2019-02-23 07:22] VITALS: BP 118/68; PULSE 82; RESP 18
[2019-02-23] MEDS: LORAZEPAM 2 MG INJ IM PRN (08:04)
[2019-02-23] MEDS: CARBAMIDE PEROXIDE 6.5% 15ML OTIC BOTH EARS SCH (08:08)
[2019-02-23] MEDS: HALOPERIDOL 5 MG INJ IM PRN ×2 (11:27→16:59)
[2019-02-23 13:59] VITALS: BP 122/85; PULSE 109; RESP 18
--- NOTE | 2019-02-23 14:20 | PDOCDIS ---
Discharge Instructions CONDITION [id number] Patient Condition: [id number] Good HOME CARE INSTRUCTIONS: [id number] Diet Instructions: [id number] Regular ACTIVITY: [id number] Activity Restrictions: [id number] No Restrictions FOLLOW UP/APPOINTMENTS Follow-up Plan FOLLOW UP WITH YOUR PRIMARY CARE PHYSICIAN IN 1-2 WEEKS LEANNA LOZANO Feb 23, 2019 14:20
--- NOTE | 2019-02-23 14:27 | DS ---
Date/Time of Note Date/Time of Note DATE: 02/23/19 TIME: 14:22 Discharge Summary Admission/Discharge Info Admit Date/Time Feb 19, 2019 at 00:10 Discharge Date/Time February 23, 2019 Discharge Diagnosis 28 yo male with HCV presents with methamphetamine induced psychosis and transaminitis Psychosis has improved Psychiatry consultation appreciated, sitter has been discontinued TMJ inflammation: - Toradol PRN Transaminitis - Known HCV disease but elevation is higher than expected. Clearly there is an acute component to this because LFTs trending down each day. I suspect there was a drug induced liver injury on top of chronic hepatitis - MRI liver wnl - RUQ US ok -LFTs have trended down -KARSTEN is negative -Follow-up with GI as outpatient for treatment of hepatitis C Meth abuse - Cessation encouraged -correction worker consultation Patient Condition: Good Hospital Course Patient is a 28 yo male with HCV presents with methamphetamine induced psychosis and transaminitis. Patient was seen by psychiatry and sitter was ultimately discontinued, psychosis did resolve. Patient's LFTs were acutely elevated likely secondary to drug abuse, patient was diagnosed with hepatitis C in the past and was told to follow-up with GI for treatment but has not yet done so. Patient was stable for DC to his mother's home, on the day of discharge patient's vitals, labs and physical exam are stable. Home Meds Unable to Obtain Active Prescriptions or Reported Meds Follow-up Plan FOLLOW UP WITH YOUR PRIMARY CARE PHYSICIAN IN 1-2 WEEKS Primary Care Provider Care Physician No Primary Time spent on discharge: > 30 minutes LEANNA LOZANO Feb 23, 2019 14:27
== END 2019-02-23 20:35 | disposition home or self-care (01) | DRG 897 ==
LOC: E/R 19:05 → 5EC 02-19 00:10
PROVIDERS: ADMIT Family Medicine; ATTEND Internal Medicine
DX: F15.151 Other stimulant abuse with stimulant-induced psychotic disorder with hallucinations (principal); F23 Brief psychotic disorder; M26.69 Other specified disorders of temporomandibular joint; B19.20 Unspecified viral hepatitis C without hepatic coma; F17.200 Nicotine dependence, unspecified, uncomplicated; F11.10 Opioid abuse, uncomplicated; G40.909 Epilepsy, unspecified, not intractable, without status epilepticus; R74.0 Nonspecific elevation of levels of transaminase and lactic acid dehydrogenase [LDH]; Z91.14 Patient's other noncompliance with medication regimen
CPT/HCPCS: 36415; 70450; 74181; 76705; 80053; 80076; 80307; 81001; 82550; 82787; 83690; 85025; 86038; 86255; 86376; 86704; 86706; 86709; 86803; 87081; 87340; 87522; 90686; 96372; J1200; J1630; J1885; J2060